=== PATIENT | male | born 1960 | race American Indian/Alaskan Native ===

== ENCOUNTER 2016-10-07 09:25 | Emergency (ER) | payer SELFPAY ==
--- NOTE | 2016-10-07 10:22 | Emergency Department Report ---
Chief Complaint: Extremity Injury, Lower Stated Complaint: FEET SWELLING/RT LEG AND FOOT PAIN Time Seen by Provider: 10/07/16 10:16 - HPI History of Present Illness: 56 y/o male complain of right foot pain x 2 months.pt state that the swelling in the right foot as worsen with shooting pain .pt state hard to ambulate on right foot .pt denies any prior medical treatment . - ROS Review of Systems: per HPI - Exam Vital Signs: Vital Signs 10/07/16 09:53 Temperature 98.2 F Pulse Rate 79 Respiratory 16 Rate Blood Pressure 145/71 O2 Sat by Pulse 98 Oximetry Physical Exam: GENERAL: The patient is well-developed and well-nourished. Patient is in NAD. HENT: Normocephalic. Atraumatic. Patient has moist mucous membranes. Throat: No erythema, swelling or exudates. EYES: Extraocular motions are intact, PERRL NECK: Supple. No meningitic signs are noted. There is no adenopathy noted. CHEST/LUNGS: Clear to auscultation bilaterally. No wheezing, rales or rhonchi noted. There is no respiratory distress noted. HEART/CARDIOVASCULAR: Regular rate and rhythm. Normal S1 S2. No murmurs, rubs , clicks, or gallops. ABDOMEN: Abdomen is soft, nontender.. Bowel sounds normoactive. There is no abdominal distention. Negative rebound tenderness. Negative Rovsing. Negative [place] testing. Negative obturator and psoas signs. Negative CVA tenderness B/ L. : Deferred. SKIN: There is no rash. There is no diaphoresis. NEURO: The patient is A&Ox3. The patient has no focal neurologic deficits. MUSCULOSKELETAL: There is no tenderness or deformity. There is no limitation range of motion. edema noted to the right foot .pedal pulse PSYCH: Pt has appropriate mood and affect. MSE screening note: Focused history and physical exam performed. Due to findings the following was ordered: ED Medical Decision Making - Lab Data Result diagrams: 10/07/16 10:37 10/07/16 10:37 ED Disposition for MSE Condition: Stable
[2016-10-07 10:50] LABS: Basophils % (Auto) 0.7 % (0.0-1.8); Eosinophils % (Auto) 4.7 % (0.0-4.3); Hematocrit 39.2 % (35.5-45.6); Hemoglobin 12.7 gm/dl (11.8-15.2); Mean Corpuscular HGB Conc 32 % (32-34); Mean Corpuscular Hemoglobin 28 pg (28-32); Mean Corpuscular Volume 88 fl (84-94); Platelet Count 211 K/mm3 (140-440); Red Blood Count 4.48 M/mm3 (3.65-5.03); Red Cell Distribution Width 14.1 % (13.2-15.2)
[2016-10-07 10:59] LABS: BUN/Creatinine Ratio 20.76; Blood Urea Nitrogen 27 mg/dL (9-20); Calcium 9.3 mg/dL (8.4-10.2); Carbon Dioxide 24 mmol/L (22-30); Chloride 103.4 mmol/L (98-107); Glucose 145 mg/dL (75-100); Potassium 4.3 mmol/L (3.6-5.0); Sodium 141 mmol/L (137-145)
--- NOTE | 2016-10-07 11:06 | XRay Report ---
Right foot: Her swelling over the dorsum of the foot. The distal third digit beyond the proximal phalanx is angled medially and could be subluxed. No fracture deformity noted. There appears to be a prior injury involving the distal proximal fifth phalanx with a sequestered ossicle along the fibular side. The bones are generally well mineralized and the joint spaces are relatively preserved. Impressions: 1. Nonspecific swelling. 2. Deformity/subluxation of distal third toe. Correlate with history and clinical findings.
[2016-10-07 11:15] LABS: Anion Gap 18 mmol/L
[2016-10-07 14:43] VITALS: BP 135/72
--- NOTE | 2016-10-08 01:31 | ED Elopement Review ---
ED Pt Elopement review - Results review Lab results: Laboratory Tests 10/07/16 10/07/16 10:37 10:37 WBC 7.0 RBC 4.48 Hgb 12.7 Hct 39.2 MCV 88 MCH 28 MCHC 32 RDW 14.1 Plt Count 211 Lymph % (Auto) 37.4 H [place] % (Auto) 8.7 H Eos % (Auto) 4.7 H Baso % (Auto) 0.7 Lymph # 2.6 Dale # 0.6 Eos # 0.3 Baso # 0.0 Seg Neutrophils % 48.5 Seg Neutrophils # 3.4 Sodium 141 Potassium 4.3 Chloride 103.4 Carbon Dioxide 24 Anion Gap 18 BUN 27 H Creatinine 1.3 Estimated GFR > 60 BUN/Creatinine Ratio 20.76 Glucose 145 H Calcium 9.3 - Call Back decision Pt Call Back Decision: No action required
== END 2016-10-07 17:45 | disposition left against medical advice (07) ==
LOC: ED 09:25
DX: M79.671 Pain in right foot (principal); Z53.21 Procedure and treatment not carried out due to patient leaving prior to being seen by health care provider
CPT/HCPCS: 36415; 80048; 85025